=== PATIENT | female | born 1970 | race Caucasian/White ===

== ENCOUNTER 2019-03-28 13:13 | Emergency (ER) | payer OTHER ==
[~2019-03-28] VITALS: Ht 167.6 cm; Wt 133.8 kg
[2019-03-28] MEDS ORDERED: ZOLOFT100 MG PO (13:36)
[2019-03-28] MEDS ORDERED: NAPROSYN500 MG PO (13:36)
[2019-03-28] MEDS ORDERED: ZYRTEC10 M2 PO (13:37)
[2019-03-28] MEDS ORDERED: BUSPIRONE HCL10 MG PO (13:37)
[2019-03-28] MEDS ORDERED: PHENTERMINE H37.5 MG PO (13:37)
[2019-03-28] MEDS ORDERED: LASIX 20 MG TAB20 MG PO (13:37)
[2019-03-28] MEDS ORDERED: OMEPRAZOLE20 M1 PO (13:37)
[2019-03-28] MEDS ORDERED: CIPRODEX OTIC7.5 ML OTIC (14:26)
[2019-03-28] MEDS ORDERED: AUGMENTIN 875-1 EACH PO (14:26)
[2019-03-28 14:43] VITALS: BP 136/88
== END 2019-03-28 14:44 | disposition home or self-care (01) ==
LOC: M.ERS 13:13
DX: H60.91 Unspecified otitis externa, right ear (principal); H66.91 Otitis media, unspecified, right ear; Z90.49 Acquired absence of other specified parts of digestive tract; Z88.8 Allergy status to other drugs, medicaments and biological substances